=== PATIENT | female | born 1965 | race Caucasian/White ===

== ENCOUNTER → 2021-02-06 | Outpatient (CLI) | payer BC ==
[~2021-02-06] MED LIST: ASPIRIN EC325 MG PO; CENTRUM SILVER1 EAC1 PO; CLONAZEPAM1 MG PO; LEVOTHYROXINE150 MCG PO; LISINOPRIL-HCT1 EAC1 PO; OXYCODON-ACETA1 EAC1 PO; PAROXETINE HCL20 MG PO
[2021-02-06 12:12] LABS: HEMOGLOBIN 13.9 gm/dl (12.3-15.3); RED BLOOD COUNT 4.23 M/UL (4.00-5.10); WHITE BLOOD COUNT 7.3 K/UL (4.5-11.0)
[2021-02-06 12:25] LABS: BUN/CREATININE RATIO 18 (0-10)
== END ==
LOC: EDSTATUS 11:00 → OPSV2 11:00
PROVIDERS: Orthopaedic Surgery
DX: Z01.812 Encounter for preprocedural laboratory examination (principal); M17.0 Bilateral primary osteoarthritis of knee
CPT/HCPCS: 36415; 80048; 85027; 87081; 93005

== ENCOUNTER → 2021-02-15 | Outpatient (CLI) | payer BC ==
[2021-02-15 14:11] LABS: BUN/CREATININE RATIO 21 (0-10)
== END ==
LOC: LAB 13:07
PROVIDERS: Orthopaedic Surgery
DX: Z01.812 Encounter for preprocedural laboratory examination (principal); M17.0 Bilateral primary osteoarthritis of knee
CPT/HCPCS: 80048; 86850; 86900; 86901; 86920

== ENCOUNTER 2021-02-16 06:30 | Day surgery (SDC) | payer BC ==
[~2021-02-16] VITALS: Ht 170.2 cm; Wt 93.0 kg
[2021-02-16] MEDS ORDERED: CLONAZEPAM1 MG PO (06:58)
[2021-02-16] MEDS ORDERED: PAROXETINE HCL20 MG PO (06:58)
[2021-02-16] MEDS ORDERED: LEVOTHYROXINE150 MCG PO (06:59)
[2021-02-16] MEDS ORDERED: LISINOPRIL-HCT1 EAC1 PO (06:59)
[2021-02-16] MEDS ORDERED: CENTRUM SILVER1 EAC1 PO (06:59)
[2021-02-16] MEDS ORDERED: OXYCODON-ACETA1 EAC1 PO (08:11)
[2021-02-16] MEDS ORDERED: ASPIRIN EC325 MG PO (08:11)
[2021-02-17 03:42] LABS: HEMOGLOBIN 10.8 gm/dl (12.3-15.3); RED BLOOD COUNT 3.3 M/UL (4.00-5.10); WHITE BLOOD COUNT 10.6 K/UL (4.5-11.0)
[2021-02-17 04:14] LABS: BUN/CREATININE RATIO 33 (0-10)
== END 2021-02-17 12:36 | disposition home or self-care (01) ==
LOC: OR 06:30 → M/S 13:55 → OR 02-17 12:36
PROVIDERS: Orthopaedic Surgery
DX: M17.0 Bilateral primary osteoarthritis of knee (principal); M22.41 Chondromalacia patellae, right knee; I10 Essential (primary) hypertension; E89.0 Postprocedural hypothyroidism; K21.9 Gastro-esophageal reflux disease without esophagitis; F41.9 Anxiety disorder, unspecified; Z86.16 Personal history of COVID-19; Z86.010 Personal history of colon polyps; Z88.0 Allergy status to penicillin; Z79.899 Other long term (current) drug therapy
CPT/HCPCS: 36415; 73560; 80048; 85027; 97116-GP-CQ; 97161; 97166; 97535; C1713; C1776; J0690; J1100; J1885; J2250; J2270; J2405; J2704; J2795; J3010; J3370; J7120

== ENCOUNTER 2021-12-09 04:42 | Emergency (ER) | payer BC ==
[2021-12-09] MEDS ORDERED: CYCLOBENZAPRINE10 MG PO (06:29)
[2021-12-09] MEDS ORDERED: IBUPROFEN600 MG PO (06:29)
== END 2021-12-09 07:00 | disposition home or self-care (01) ==
LOC: ER1 04:42
DX: S49.92XA Unspecified injury of left shoulder and upper arm, initial encounter (principal); I10 Essential (primary) hypertension; W01.0XXA Fall on same level from slipping, tripping and stumbling without subsequent striking against object, initial encounter
CPT/HCPCS: 73030; 73060; 73080; 99283